=== PATIENT | male | born 1970 | race Caucasian/White ===

== ENCOUNTER 2017-05-26 11:26 | Emergency (ER) | payer SELFPAY ==
[~2017-05-26] VITALS: Ht 182.9 cm; Wt 108.9 kg
[~2017-05-26 11:26] MED LIST: BACITRAYCIN PLU28 GM TOP; NORCO 5-325 TA1 EACH PO; OMEPRAZOLE20 MG PO
[2017-05-26] MEDS ORDERED: IBUPROFEN200 M1 PO (11:34)
[2017-05-26] MEDS ORDERED: OMEPRAZOLE20 MG PO (11:34)
[2017-05-26] MEDS ORDERED: LEVAQUIN500 MG PO (11:49)
[2017-05-26] MEDS ORDERED: PROMETH-CODEIN 65 ML PO (11:49)
[2017-07-21] MEDS ORDERED: METHYLPREDNISOLO4 M1 PO (11:23)
[2017-07-21] MEDS ORDERED: GUAIFEN-CODEINE10 ML PO (11:23)
[2017-07-21] MEDS ORDERED: LEVAQUIN500 MG PO (11:23)
== END 2017-05-26 12:05 | disposition home or self-care (01) ==
LOC: ED 11:26
DX: J40 Bronchitis, not specified as acute or chronic (principal); Z88.5 Allergy status to narcotic agent; Z79.899 Other long term (current) drug therapy
CPT/HCPCS: 99283

== ENCOUNTER 2018-07-17 21:20 | Emergency (ER) | payer OTHER ==
[~2018-07-17] VITALS: Ht 182.9 cm; Wt 108.9 kg
[~2018-07-17 21:20] MED LIST changes: +GUAIFEN-CODEINE10 ML PO; +IBUPROFEN200 M1 PO; +LEVAQUIN500 MG PO; +METHYLPREDNISOLO4 M1 PO; +PROMETH-CODEIN 65 ML PO
--- OUTSIDE RECORDS SUMMARY | 2018-07-17 21:22 | XMS ---
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 Hardy has no Care Guidelines for this patient. Jose VISIT COUNT (12 MO.) 3 MAN[facility] Law TOTAL 3 NOTE: Visits indicate total known visits. ED/UCC VISIT TRACKING (12 MO.) 07/17/2018 21:20 [facility] TYPE: Emergency COMPLAINT: - VOMITING 09/28/2017 04:11 [facility] TYPE: Emergency COMPLAINT: - VOMITING DIAGNOSES: - Noninfective gastroenteritis and colitis, unspecified - Unspecified abdominal pain - Allergy status to narcotic agent status - Other usp (current) drug therapy 07/21/2017 11:05 [facility] TYPE: Emergency COMPLAINT: - COUGH/CHEST CONGESTION/WHEEZING DIAGNOSES: - Bronchitis, not specified as acute or chronic - Other terminal gauger supervisor (current) drug therapy - Cough - Allergy status to narcotic agent status INPATIENT VISIT TRACKING (12 MO.) No inpatient visits to display in this time frame [email or web address]
[2018-07-17] MEDS ORDERED: ZOFRAN4 MG PO (23:45)
== END 2018-07-18 01:04 | disposition home or self-care (01) ==
LOC: ED 21:20
DX: K52.9 Noninfective gastroenteritis and colitis, unspecified (principal); Z88.5 Allergy status to narcotic agent; Z79.899 Other long term (current) drug therapy
CPT/HCPCS: 80053; 81001; 83690; 85025; 96374; 99284-25; J2405; J7030

== ENCOUNTER 2019-04-28 21:09 | Emergency (ER) | payer OTHER ==
[~2019-04-28] VITALS: Ht 182.9 cm; Wt 108.9 kg
[~2019-04-28 21:09] MED LIST changes: +ZOFRAN4 MG PO
[2019-04-28] MEDS ORDERED: NORCO 5-325 TA1 EACH PO (21:58)
== END 2019-04-28 22:23 | disposition home or self-care (01) ==
LOC: ED 21:09
DX: H10.9 Unspecified conjunctivitis (principal)
CPT/HCPCS: 99283

== ENCOUNTER 2021-11-25 16:01 | Emergency (ER) | payer OTHER ==
[~2021-11-25] VITALS: Ht 182.9 cm; Wt 108.9 kg
[2021-11-25] MEDS ORDERED: LOVASTATIN10 MG PO (16:10)
[2021-11-25] MEDS ORDERED: HYDROCODON-ACE1 EA11 PO (19:26)
== END 2021-11-25 20:13 | disposition home or self-care (01) ==
LOC: ED 16:01
DX: S43.034A Inferior dislocation of right humerus, initial encounter (principal); S43.014A Anterior dislocation of right humerus, initial encounter; S70.01XA Contusion of right hip, initial encounter; Z88.5 Allergy status to narcotic agent; Z79.899 Other long term (current) drug therapy; V80.010A Animal-rider injured by fall from or being thrown from horse in noncollision accident, initial encounter
CPT/HCPCS: 23650; 73030; 73080; 73502; 99152; 99153; 99283-25; A9270; J2704; J3010

== ENCOUNTER 2021-12-22 22:55 | Emergency (ER) | payer BC ==
[~2021-12-22] VITALS: Ht 182.9 cm; Wt 120.9 kg
[~2021-12-22 22:55] MED LIST changes: +HYDROCODON-ACE1 EA11 PO; +LOVASTATIN10 MG PO
--- OUTSIDE RECORDS SUMMARY | 2021-12-22 22:58 | XMS ---
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 [place] - 2 Visits in 30 Days CARE PROVIDERS CAMERON GRIMM Physician 07/18/2018-Current PHONE: Unknown [facility] Current PHONE: [phone] Hardy has no Care Guidelines for this patient. Jose VISIT COUNT (12 MO.) 1 [facility] Ludmila Vargas [address] [place] [address] TOTAL 3 NOTE: Visits indicate total known visits. ED/UCC VISIT TRACKING (12 MO.) 12/22/2021 22:55 MANDEEP Beltran TYPE: Emergency COMPLAINT: - EAR PAIN 11/28/2021 21:31 [facility] Sam VALENZUELA TYPE: Emergency DIAGNOSES: - Shoulder Injury - Shoulder Pain - Anterior dislocation of right humerus, initial encounter 11/25/2021 16:01 MANDE[facility] Acevedo [place] TYPE: Emergency COMPLAINT: - EXTREMITY PAIN/INJURY DIAGNOSES: - Other [facility] (current) drug therapy - Inferior dislocation of right humerus, initial encounter - Allergy status to narcotic agent - Anterior dislocation of right humerus, initial encounter - Pain in right shoulder - Contusion of right hip, initial encounter - Animal-rider injured by fall from or being thrown from horse in noncollision accident, initial encounter INPATIENT VISIT TRACKING (12 MO.) No inpatient visits to display in this time frame [email or web address]
[2021-12-22] MEDS ORDERED: DICLOFENAC SODI75 MG PO (23:07)
== END 2021-12-22 23:33 | disposition home or self-care (01) ==
LOC: ED 22:55
DX: H60.92 Unspecified otitis externa, left ear (principal); Z88.5 Allergy status to narcotic agent
CPT/HCPCS: 99282